=== PATIENT | male | born 1970 | race Asian ===

== ENCOUNTER 2019-02-19 15:15 | Outpatient (CLI) | payer BC ==
--- NOTE | 2019-02-19 20:47 | XRAY Report ---
Reason: CHEST DISCOMFORT Procedure Date: 02/19/2019 Accession Number: [id number] / [id number] Procedure: [facility] - Chest 2 View X-Ray CPT Code: 13346 FULL RESULT: EXAM: CHEST RADIOGRAPHY EXAM DATE: 02/19/2019 03:25 PM. CLINICAL HISTORY: CHEST DISCOMFORT. COMPARISON: XR CHEST 1 VIEWS 10/11/2007 3:36 PM XR CHEST PA / LAT 08/02/2007 5:29 PM XR CHEST PA AND LAT 06/01/2007 11:23 AM. TECHNIQUE: 2 views. FINDINGS: Lungs/Pleura: Slight interval decrease in moderate nodular opacities in the right apex. No pleural effusion or pneumothorax. Mediastinum: Heart and mediastinal contours are unremarkable. Other: None. IMPRESSION: 1. No acute cardiopulmonary process. 2. Chronic right apical airspace disease, favor pulmonary tuberculosis. [facility]
== END 2019-02-19 15:16 | disposition home or self-care (01) ==
LOC: DI.WCP 15:15
PROVIDERS: ATTEND Family Medicine
DX: R91.8 Other nonspecific abnormal finding of lung field (principal)
CPT/HCPCS: 71046

== ENCOUNTER 2021-07-07 14:48 | Outpatient (CLI) | payer SELFPAY | END 2021-07-07 14:49 | disposition home or self-care (01) | LOC: COV 14:48 | PROVIDERS: ATTEND Family Medicine | DX: R50.9 Fever, unspecified (principal); R05.9 Cough, unspecified; M79.10 Myalgia, unspecified site; R53.83 Other fatigue; R09.81 Nasal congestion; J34.89 Other specified disorders of nose and nasal sinuses; Z20.822 Contact with and (suspected) exposure to COVID-19 ==